=== PATIENT | female | born 1960 | race Caucasian/White ===

== ENCOUNTER 2017-01-29 13:23 | Emergency (ER) | payer OTHER ==
[~2017-01-29] VITALS: Ht 152.4 cm; Wt 83.0 kg
[~2017-01-29 13:23] MED LIST: ALLERGY25 MG PO; CLOTRIMAZOLE-BE30 ML TOP; GRIS-PEG250 MG PO; IBUPROFEN800 MG PO; LAC-HYDRIN225 GM TOP; LISINOPRIL-HCTZ1 T14 PO; METROGEL-VAGINA70 GM VG; PANTOPRAZOLE SO40 MG PO; PROTONIX PO; ZITHROMAX1 G/PKT PO
== END 2017-01-29 15:00 | disposition home or self-care (01) ==
LOC: CFTX 13:23 → CED 13:23 → CFTX 14:39
DX: I10 Essential (primary) hypertension (principal); K21.9 Gastro-esophageal reflux disease without esophagitis; L23.7 Allergic contact dermatitis due to plants, except food; Z91.013 Allergy to seafood; Z91.041 Radiographic dye allergy status; Z91.040 Latex allergy status; Z88.8 Allergy status to other drugs, medicaments and biological substances
CPT/HCPCS: 96372; 99282; J1100

== ENCOUNTER 2017-02-05 02:36 | Emergency (ER) | payer OTHER ==
[~2017-02-05] VITALS: Ht 152.4 cm; Wt 88.5 kg
== END 2017-02-05 06:14 | disposition home or self-care (01) ==
LOC: CED 02:36
DX: L25.9 Unspecified contact dermatitis, unspecified cause (principal); I10 Essential (primary) hypertension; K21.9 Gastro-esophageal reflux disease without esophagitis; F17.210 Nicotine dependence, cigarettes, uncomplicated
CPT/HCPCS: 99282